=== PATIENT | female | born 1990 | race Caucasian/White ===

== ENCOUNTER 2023-10-19 14:10 | Emergency (ER) | payer MEDICAID, OTHER ==
[~2023-10-19] VITALS: Ht 152.4 cm; Wt 78.3 kg
[2023-10-19 14:23] VITALS: O2SAT 100
[2023-10-19] MEDS: SODIUM CHLORIDE 0.9% 1,000 ML IV ONE (16:09)
[2023-10-19] MEDS: FAMOTIDINE 20MG/2ML VIAL IV STA (16:10)
[2023-10-19] MEDS: ONDANSETRON HCL 4MG/2ML INJ IV STA (16:10)
[2023-10-19 16:16] LABS: BASOPHILS % 0.5 % (0.0-2.0); EOSINOPHILS % 0.9 % (0.0-5.0); HEMATOCRIT. 38.5 % (36.0-48.0); LYMPHOCYTES % 28.3 % (20.0-50.0); MEAN CORPUSCULAR HEMOGLOBIN 27.2 pg (28.0-32.0); MEAN CORPUSCULAR HGB CONC 33.9 g/dL (31.0-37.0); MEAN CORPUSCULAR VOLUME 80.1 fL (81.0-99.0); MEAN PLATELET VOLUME 7.9 fl (7.4-10.4); MONOCYTES % 6.3 % (2.0-8.0); PLATELET 285 x1000/uL (130-400); RED CELL DISTRIBUTION WIDTH 13.2 % (11.6-14.6); WHITE BLOOD COUNT 9.1 x1000/uL (4.5-11.0)
[2023-10-19 16:24] LABS: INR 0.9; PROTHROMBIN TIME 10.3 sec (9.6-11.0)
[2023-10-19 16:35] LABS: CLARITY URINE CLEAR (CLEAR); COLOR URINE YELLOW (YELLOW); GLUCOSE URINE NEGATIVE (NEGATIVE); KETONES URINE NEGATIVE (NEGATIVE); LEUKOCYTE ESTERASE URINE NEGATIVE (NEGATIVE); NITRITE URINE NEGATIVE (NEGATIVE); OCCULT BLOOD URINE NEGATIVE (NEGATIVE); PH URINE 6.5 (4.5-8.0); PROTEIN URINE NEGATIVE (NEGATIVE); UROBILINOGEN URINE 0.2 E.U./dL (0.2-1.0)
[2023-10-19 16:37] LABS: ALANINE AMINOTRANSFERASE 15 IU/L (10-49); ALBUMIN 4.7 g/dL (3.2-4.8); ASPARTATE AMINOTRANSFERASE 16 IU/L (<34); BILIRUBIN TOTAL 0.6 mg/dL (0.1-1.0); CALCIUM 8.9 mg/dL (8.7-10.4); CARBON DIOXIDE 25 mEq/L (21-32); CHLORIDE 105 mEq/L (98-107); CREATININE 0.7 mg/dL (0.6-1.0); GLUCOSE 85 mg/dL (70-105); HCG SCREEN NEGATIVE; POTASSIUM 3.8 mEq/L (3.5-5.1); PROTEIN TOTAL 8.6 g/dL (6.0-8.3); SODIUM 137 mEq/L (136-145); UREA NITROGEN BLOOD 15 mg/dL (9-23)
[2023-10-19] MEDS ORDERED: FAMO-135 MT (18:41)
[2023-10-19 19:29] VITALS: BP 130/80; PULSE 74; RESP 18; TEMP 97.8
[2023-10-19] MEDS ORDERED: IOHEXOL-300 100 ML BOTTLE ONE (21:03)
[2023-10-20] MEDS ORDERED: LOPE2CAP MT (06:13)
[2023-10-20] MEDS ORDERED: ONDA4TAB50 MT (06:13)
== END 2023-10-19 19:48 | disposition home or self-care (01) ==
LOC: ER 14:10
DX: R10.12 Left upper quadrant pain (principal); R10.13 Epigastric pain; Z98.890 Other specified postprocedural states
CPT/HCPCS: 80053; 81003; 81025; 84703; 83690; 85025; 85610; 36415; 71045; 74177; 96361; 96374; 99285; Q9967; J3490; J2405; J7030; Z7610

== ENCOUNTER 2023-10-20 04:50 | Emergency (ER) | payer MEDICAID, OTHER ==
[~2023-10-20] VITALS: Ht 152.4 cm; Wt 78.0 kg
[~2023-10-20 04:50] MED LIST: FAMO-135 MT
[2023-10-20 05:36] VITALS: O2SAT 98
[2023-10-20] MEDS ORDERED: LOPE2CAP MT (06:13)
[2023-10-20] MEDS ORDERED: ONDA4TAB50 MT (06:13)
[2023-10-20 06:28] LABS: HEMATOCRIT. 39.7 % (36.0-48.0); HEMOGLOBIN. 13.3 g/dL (12.0-16.0); MEAN CORPUSCULAR HEMOGLOBIN 27.1 pg (28.0-32.0); MEAN CORPUSCULAR HGB CONC 33.4 g/dL (31.0-37.0); MEAN CORPUSCULAR VOLUME 81.1 fL (81.0-99.0); PLATELET 280 x1000/uL (130-400); RED BLOOD CELL COUNT 4.89 mill/uL (4.2-5.4); RED CELL DISTRIBUTION WIDTH 13.5 % (11.6-14.6); WHITE BLOOD COUNT 10.2 x1000/uL (4.5-11.0)
[2023-10-20 06:38] VITALS: BP 127/66; PULSE 67; RESP 18; TEMP 98.6
[2023-10-20 06:38] LABS: DIFFERENTIAL COMMENT 1
[2023-10-20 07:41] LABS: ALANINE AMINOTRANSFERASE 14 IU/L (10-49); ALBUMIN 4.3 g/dL (3.2-4.8); ASPARTATE AMINOTRANSFERASE 17 IU/L (<34); BILIRUBIN TOTAL 1.1 mg/dL (0.1-1.0); CALCIUM 8.4 mg/dL (8.7-10.4); CARBON DIOXIDE 23 mEq/L (21-32); CHLORIDE 105 mEq/L (98-107); CREATININE 0.7 mg/dL (0.6-1.0); GLUCOSE 120 mg/dL (70-105); POTASSIUM 4.1 mEq/L (3.5-5.1); PROTEIN TOTAL 7.2 g/dL (6.0-8.3); SODIUM 137 mEq/L (136-145); UREA NITROGEN BLOOD 13 mg/dL (9-23)
[2023-10-20 09:17] LABS: PLATELET ESTIMATE NORMAL
== END 2023-10-20 06:36 | disposition home or self-care (01) ==
LOC: ER 04:50
DX: K52.9 Noninfective gastroenteritis and colitis, unspecified (principal)
CPT/HCPCS: 36415; 80053; 85025; 99283

== ENCOUNTER 2023-10-31 19:31 | Emergency (ER) | payer MEDICAID, OTHER ==
[~2023-10-31] VITALS: Ht 152.4 cm; Wt 77.0 kg
[~2023-10-31 19:31] MED LIST changes: +LOPE2CAP MT; +ONDA4TAB50 MT
[2023-10-31 19:52] VITALS: BP 122/78; PULSE 76; RESP 16; O2SAT 100
[2023-10-31] MEDS ORDERED: ACETAMINOPHEN 325MG TABLET PO STA (20:58)
[2023-10-31] MEDS: METHYLPREDNISOLONE SOD SUCC 125MG/2ML (ACT-O-VIAL) IM STA (23:00)
[2023-11-01 01:30] VITALS: TEMP 98.5
[2023-11-01] MEDS: ACETAMINOPHEN 325MG TABLET PO NR (01:30)
[2023-11-01] MEDS: CEFTRIAXONE SODIUM 1G VIAL IM ONE (01:45)
[2023-11-01] MEDS: LIDOCAINE HCL/PF 1% 10 MG/ML 5ML VIAL INFIL ONE (01:45)
[2023-11-01 03:05] LABS: BASOPHILS % 0.6 % (0.0-2.0); DIFFERENTIAL COMMENT 0; EOSINOPHILS % 1.5 % (0.0-5.0); HEMATOCRIT. 37.7 % (36.0-48.0); HEMOGLOBIN. 12.6 g/dL (12.0-16.0); LYMPHOCYTES % 26.7 % (20.0-50.0); MEAN CORPUSCULAR HEMOGLOBIN 26.6 pg (28.0-32.0); MEAN CORPUSCULAR HGB CONC 33.5 g/dL (31.0-37.0); MEAN CORPUSCULAR VOLUME 79.3 fL (81.0-99.0); MEAN PLATELET VOLUME 7.7 fl (7.4-10.4); MONOCYTES % 9.2 % (2.0-8.0); PLATELET 315 x1000/uL (130-400); RED BLOOD CELL COUNT 4.75 mill/uL (4.2-5.4); RED CELL DISTRIBUTION WIDTH 13.5 % (11.6-14.6); WHITE BLOOD COUNT 7.1 x1000/uL (4.5-11.0)
[2023-11-01 03:15] LABS: CHLORIDE 105 mEq/L (98-107); POTASSIUM 3.9 mEq/L (3.5-5.1); SODIUM 138 mEq/L (136-145)
[2023-11-01 03:16] LABS: CALCIUM 8.7 mg/dL (8.7-10.4); CARBON DIOXIDE 27 mEq/L (21-32)
[2023-11-01 03:21] LABS: CREATININE 0.6 mg/dL (0.6-1.0); GLUCOSE 110 mg/dL (70-105); UREA NITROGEN BLOOD 16 mg/dL (9-23)
[2023-11-01 03:23] LABS: ALANINE AMINOTRANSFERASE 21 IU/L (10-49); ALBUMIN 4.4 g/dL (3.2-4.8); ASPARTATE AMINOTRANSFERASE 19 IU/L (<34); BILIRUBIN TOTAL 0.8 mg/dL (0.1-1.0); PROTEIN TOTAL 7.5 g/dL (6.0-8.3)
[2023-11-01] MEDS ORDERED: IOHEXOL-300 100 ML BOTTLE ONE (05:48)
[2023-11-01] MEDS ORDERED: ONDANSETRON HCL 4MG TABLET PO ONE (06:45)
== END 2023-11-01 07:30 | disposition home or self-care (01) ==
LOC: ER 19:31
DX: L04.0 Acute lymphadenitis of face, head and neck (principal); J03.90 Acute tonsillitis, unspecified; J05.10 Acute epiglottitis without obstruction
CPT/HCPCS: 99285; 71045; 81025; 87430; 87070; 70360; 96372 ×2; 70491; 80053; 85025; 36415; Q9967; J0696; J3490